=== PATIENT | female | born 1980 | race Caucasian/White ===

== ENCOUNTER 2019-02-09 12:06 | Emergency (ER) | payer BC ==
[~2019-02-09] VITALS: Ht 162.6 cm; Wt 117.9 kg
[2019-02-09] MEDS ORDERED: HYDROCHLOROTHIA25 M2 PO (12:12)
[2019-02-09] MEDS ORDERED: LISINOPRIL2.5 MG PO (12:12)
[2019-02-09] MEDS ORDERED: ZOLOFT100 MG PO (12:12)
[2019-02-09] MEDS ORDERED: PROTONIX40 M1 PO (12:12)
[2019-02-09 14:34] LABS: ABSOLUTE NEUTROPHILS 6.3 thou/uL (1.4-8.2); EOSINOPHILS 3.2 % (0.0-3.0); HEMATOCRIT 38.2 % (37.0-47.0); HEMOGLOBIN 12.4 gm/dL (12.0-15.0); LYMPHOCYTES 24.4 % (24.0-44.0); MCH 26.3 pg (26.0-34.0); MCHC 32.4 g/dL (28.0-37.0); MCV 81.1 fL (80.0-100.0); MONOCYTES 5.9 % (1.0-8.0); PLATELET COUNT 309 thou/uL (150-400); POLYS 65.5 % (36.0-66.0); RBC 4.71 mil/uL (4.20-5.00); RDW 16.4 % (10.5-14.5); WBC 9.6 thou/uL (4.0-11.0)
[2019-02-09 14:41] LABS: ANION GAP 9 mmol/L (7-16); BUN 12 mg/dL (7-18); CHLORIDE 101 mmol/L (98-107); CO2 28 mmol/L (21-32); CREATININE 0.7 mg/dL (0.6-1.0); GLUCOSE 89 mg/dL (74-106); POTASSIUM 4.1 mmol/L (3.5-5.1); SODIUM 138 mmol/L (136-145)
[2019-02-09 14:51] LABS: ALBUMIN 3.9 g/dL (3.4-5.0); SGOT 20 U/L (15-37); SGPT 30 U/L (30-65); TOTAL BILIRUBIN 0.5 mg/dL (<0.1-1.0); TOTAL PROTEIN 8.7 g/dL (6.4-8.2); TROPONIN-I <0.06 ng/mL (<0.06)
[2019-02-09 15:15] LABS: URINE BILIRUBIN NEGATIVE (Negative); URINE BLOOD NEGATIVE (Negative); URINE CLARITY CLEAR; URINE COLOR YELLOW; URINE GLUCOSE-RANDOM* NEGATIVE (Negative); URINE KETONES NEGATIVE (Negative); URINE LEUKOCYTES-REFLEX NEGATIVE (Negative); URINE NITRITE-REFLEX NEGATIVE (Negative); URINE PROTEIN (DIPSTICK) NEGATIVE (Negative); URINE SPECIFIC GRAVITY 1.025 (1.005-1.035); URINE UROBILINOGEN 0.2 E.U./dl (0.2-1.0)
[2019-02-09] MEDS ORDERED: CARAFATE 1 GM TA1 G1 PO (15:58)
[2019-02-09] MEDS ORDERED: OMEPRAZOLE40 MG PO (15:58)
[2019-02-09 16:50] VITALS: BP 139/82
--- NOTE | 2019-02-10 10:10 | EKG ---
[facility] [place] [address] ELECTROCARDIOGRAM REPORT Name: PREET MICHAUD Room #: [facility]#: [id number] Admission: 02/09/19 Attend Phys: Discharge: 02/09/19 Date of : 80 Report #: [id number] THIS REPORT FOR: //name// [facility] ED Test Date: 2019-02-09 Test Time: 12:10:53 Pat Name: PREET MICHAUD Department: Room: Gender: F Client Solutions Director: Gerardo : 1980 Requested By: Helen Buck Order Number: [id number] MD: Artemio Ramírez Measurements Intervals [place] Rate: 99 P: 34 NH: 155 QRS: -55 QRSD: 92 T: 41 QT: 335 QTc: 430 Interpretive Statements Sinus rhythm Left anterior fascicular block Abnormal R-wave progression, early transition No previous ECG available for comparison Electronically Signed On 02-10-2019 10:10:03 [employer] OPERATOR by Artemio Ramírez [email or web address] <ELECTRONICALLY SIGNED> By: Artemio Ramírez MD, [facility] 02/10/19 1010 1210 1210 Artemio Ramírez MD, FACC /EPI
== END 2019-02-09 16:50 | disposition home or self-care (01) ==
LOC: ER 12:06
PROVIDERS: Physician Assistant
DX: K29.70 Gastritis, unspecified, without bleeding (principal); R07.9 Chest pain, unspecified; I10 Essential (primary) hypertension; E78.00 Pure hypercholesterolemia, unspecified; Z90.49 Acquired absence of other specified parts of digestive tract